=== PATIENT | male | born 1965 | race Caucasian/White ===

== ENCOUNTER 2021-04-25 12:50 | Emergency (ER) | payer OTHER ==
--- NOTE | 2021-04-25 14:27 | RAD REPORT ---
EXAM DESCRIPTION: CT - Head C Spine Mpr Wo Con - 04/25/2021 2:08 pm CLINICAL HISTORY: Head and neck injury status post fall. Head and neck pain COMPARISON: None. TECHNIQUE: Computed axial tomography of the head and cervical spine was obtained. Sagittal and coronal reconstruction was performed. All CT scans are performed using dose optimization technique as appropriate and may include automated exposure control or mA/KV adjustment according to patient size. FINDINGS: An intracranial bleed is not seen. The ventricles are normal in caliber. An extra-axial fl uid collection is not noted.Fluid within the visualized sinuses and mastoids is not seen A cervical fracture is not visualized. No dislocation is noted. Large osteophytes extend off of the a nterior aspect of the cervical spine IMPRESSION: No acute intracranial abnormality is seen. A cervical fracture is not visualized. If the patient continues to have symptoms to suggest intracra nial /spinal cord pathology then MRI would be recommended
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
[2021-04-25 15:21] VITALS: TEMP 98.7
[2021-04-25 15:23] VITALS: BP 142/90; O2SAT 100
== END 2021-04-25 15:12 | disposition home or self-care (01) ==
LOC: ER 12:50
DX: M79.10 Myalgia, unspecified site (principal); V49.40XA Driver injured in collision with unspecified motor vehicles in traffic accident, initial encounter; I10 Essential (primary) hypertension
CPT/HCPCS: 70450; 72125; 99284

== ENCOUNTER 2023-01-01 12:33 | Emergency (ER) | payer BC ==
--- NOTE | 2023-01-01 14:21 | RAD REPORT ---
EXAM DESCRIPTION: USUpper Ext Artery Uni Bil01/01/2023 1:56 pm CLINICAL HISTORY: Left arm swelling and pain COMPARISON: None FINDINGS: The left common carotid, left subclavian, left subclavian, left axillary, left brachial, l eft basilic, left ulnar and left radial arteries demonstrate normal waveforms. No significant stenosis/occlusion Doppler demonstrates good flow. Grayscale, color and spectral analysis performed on all vessels IMPRESSION: Unremarkable exam
[2023-01-01 14:39] LABS: Absolute Lymphocytes (CBC) 1.5 K/uL (0.7-4.9); Lymphocytes % 17.6 % (15.3-44.8); MPV 7.2 fL (7.6-11.3); Platelets 292 thou/uL (152-406); RBC Red Blood Cell Count 4.21 M/uL (4.33-5.43)
[2023-01-01 14:40] LABS: Protime INR 1.1
[2023-01-01 14:53] LABS: Potassium 4.2 mEq/L (3.5-5.1)
--- NOTE | 2023-01-01 15:07 | RAD REPORT ---
EXAM DESCRIPTION: US - UPPER EXTREMITY VENOUS UNILATE - 01/01/2023 1:57 pm CLINICAL HISTORY: left arm swelling. COMPARISON: None. FINDINGS: Echogenic material consistent with acute thrombus is present within the left subclavian an d left axillary veins Left internal jugular vein, left brachial vein, left cephalic, left basilic, left ulnar and left radi al veins demonstrate phasic signal.The veins are compressible. Doppler demonstrates good flow. Grayscale, color and spectral analysis performed on all vessels IMPRESSION: Acute thrombus left subclavian and left axillary veins
--- NOTE | 2023-01-01 15:36 | EDPHYS ---
Physician Documentation [facility] Name: Esau Jose Age: 57 yrs Sex: Male : 1965 Arrival Date: 01/01/2023 Time: 12:33 Bed 10 Private MD: ED Physician Hola Nunez HPI: 01/01 13:00 This 57 yrs old Male presents to ER via Ambulatory with complaints of Arm Swelling. jh7 13:00 Onset: The symptoms/episode began/occurred 1 day(s) ago. Associated signs and symptoms: jh7 Pertinent negatives: fever. 57-year-old male presents to the ER complaining of left arm swelling, pain, and redness since yesterday. He has a history of hypertension and takes lisinopril. 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 Denies fever or shortness of breath.. Historical: - Allergies: 12:54 No Known Allergies; hb - Home Meds: 12:54 lisinopril Oral [Active]; hb - PMHx: 12:54 Chronic pain; Hypertensive disorder; hb - Immunization history:: Adult Immunizations up to date. - Social history:: Smoking status: Patient reports use of chewing tobacco. ROS: 13:00 MS/extremity: Positive for pain, swelling, tenderness, of the left arm, jh7 13:00 Constitutional: Negative for fever, chills, and weight loss, Eyes: Negative for injury, jh7 pain, redness, and discharge, Neck: Negative for injury, pain, and swelling, Cardiovascular: Negative for chest pain, palpitations, and edema, Respiratory: Negative for shortness of breath, cough, wheezing, and pleuritic chest pain, Abdomen/GI: Negative for abdominal pain, nausea, vomiting, diarrhea, and constipation, Back: Negative for injury and pain, Skin: Negative for injury, rash, and discoloration, Neuro: Negative for headache, weakness, numbness, tingling, and seizure, 13:00 All other systems are negative, Exam: 13:00 Constitutional: This is a well developed, well nourished patient who is awake, alert, jh7 and in no acute distress. Head/Face: Normocephalic, atraumatic. Cardiovascular: Regular rate and rhythm with a normal S1 and S2. No gallops, murmurs, or rubs. Normal PMI, no JVD. No pulse deficits. Respiratory: Lungs have equal breath sounds bilaterally, clear to auscultation and percussion. No rales, rhonchi or wheezes noted. No increased work of breathing, no retractions or nasal flaring. Abdomen/GI: Soft, non-tender, with normal bowel sounds. No distension or tympany. No guarding or rebound. No evidence of tenderness throughout. Skin: Warm, dry with normal turgor. Normal color with no rashes, no lesions, and no evidence of cellulitis. Neuro: Awake and alert, GCS 15, oriented to person, place, time, and situation. Motor strength 5/5 in all extremities. Sensory grossly intact. Normal gait. 13:00 Musculoskeletal/extremity: ROM: full active range of motion, Circulation is intact in all extremities. Sensation intact. Entire left arm is tender and swollen with the most significant swelling slightly distal to the elbow where skin is tight.. Vital Signs: 12:52 BP 124 / 87; Pulse 88; Resp 16; Temp 97.9(O); Pulse Ox 100% on R/A; Weight 97.07 kg; hb Height 6 ft. 3 in. ; Pain 8/10; 12:52 Body Mass Index 26.75 (97.07 kg, 190.5 cm) hb 12:52 Pain Scale: Adult hb MDM: 12:37 Patient medically screened. [facility] 15:15 Differential diagnosis: DVT, acute arterial occlusion, cellulitis. Data reviewed: vital [facility] signs, nurses notes, lab test result(s), radiologic studies, ultrasound. Consideration of Admission/Observation Escalation of care including admission/observation considered. I considered the following discharge prescriptions or medication management in the emergency department Medications were administered in the Emergency Department. See MAR. Care significantly affected by the following chronic conditions: Hypertension. Counseling: I had a detailed discussion with the patient and/or guardian regarding the historical points, exam findings, and any diagnostic results supporting the discharge/admit diagnosis, the need for outpatient follow up, for definitive care. ED course: Discussed possible admission of the patient due to significant swelling of arm. The patient stated he would rather go home and follow-up with his PCP on Wednesday. Agreed to provide him a work note so that he may follow-up. Will start on Eliquis starter pack.. 01/01 12:58 Order name: BMP; Complete Time: 14:55 [facility] 01/01 12:58 Order name: CBC with Diff; Complete Time: 14:55 7 01/01 12:58 Order name: PT-INR; Complete Time: 14:55 7 01/01 12:58 Order name: Lactate w/ 2H reflex if indic.; Complete Time: 14:57 7 01/01 13:02 Order name: Upper Ext Artery Uni Felix; Complete Time: 14:31 EDMS 01/01 13:02 Order name: UPPER EXTREMITY VENOUS UNILATE; Complete Time: 15:07 EDMS Administered Medications: No medications were administered Disposition: 16:58 Co-signature as Attending Physician, Hola Nunez MD I reviewed the patient's care rt provided by the Advanced Practice Provider and agree with the diagnosis and treatment plan. Disposition Summary: 01/01/23 15:35 Discharge Ordered Notes: Location: Home [facility] Problem: new [facility] Symptoms: are unchanged [facility] Condition: Stable [facility] Diagnosis - Acute thrombosis of subclavian and axillary veins [facility] Followup: [facility] - With: Private Physician - When: 2 - 3 days - Reason: Recheck today's complaints Discharge Instructions: - Discharge Summary Sheet [facility] - Deep Vein Thrombosis [facility] Forms: - Work release form ap3 - Medication Reconciliation Form [facility] - Thank You Letter [facility] - Patient Portal Instructions [facility] - Leadership Thank You Letter [facility] Prescriptions: - Eliquis DVT-PE Treat 30D Start 5 mg (74 tabs) Oral Tablet, Dose Pack - take 1 tablet ORAL route per package directions for 30 days; 74 tablet; [facility] Refills: 0, Product Selection Permitted - Tramadol 50 mg Oral Tablet - take 1 tablet ORAL route every 8 hours as needed; 12 tablet; Refills: 0, [facility] Product Selection Permitted Signatures: Dis[facility] Aurora Ontiveros RN RN Samantha Coleman, AUTOMATION ARCHITECT AUTOMATION ARCHITECT [facility] Hola Nunez MD MD rt Corrections: (The following items were deleted from the chart) 13:00 12:58 Lower Extremity Artery Uni Ltd+US.RAD.BRZ ordered. EDMS EDMS 13:00 12:58 Extremity Venous Uni Ltd+US.RAD.BRZ ordered. EDMS EDMS 16:55 13:00 MS/extremity: Positive for pain, swelling, tenderness, of the left arm, jh7 jh7
--- NOTE | 2023-01-01 15:36 | ER ---
Nurse's Notes [facility] Name: Esau Jose Age: 57 yrs Sex: Male : 1965 Arrival Date: 01/01/2023 Time: 12:33 Bed 10 Private MD: Diagnosis: Acute thrombosis of subclavian and axillary veins Presentation: 01/01 12:52 Chief complaint: Left arm pain, redness, and swelling that started last night. hb Coronavirus screen: At this time, the client does not indicate any symptoms associated with coronavirus-19. Ebola Screen: No symptoms or risks identified at this time. Initial Sepsis Screen: Does the patient meet any 2 criteria? No. Patient's initial sepsis screen is negative. Does the patient have a suspected source of infection? No. Patient's initial sepsis screen is negative. Risk Assessment: Do you want to hurt yourself or someone else? Patient reports no desire to harm self or others. Onset of symptoms was December 31, 2022. 12:52 Method Of Arrival: Ambulatory hb 12:52 Acuity: BRYSON 3 hb Historical: - Allergies: 12:54 No Known Allergies; hb - Home Meds: 12:54 lisinopril Oral [Active]; hb - PMHx: 12:54 Chronic pain; Hypertensive disorder; hb - Immunization history:: Adult Immunizations up to date. - Social history:: Smoking status: Patient reports use of chewing tobacco. Screenin:00 [facility] ED Fall Risk Assessment (Adult) History of falling in the last 3 months, ap3 including since admission No falls in past 3 months (0 pts). Abuse screen: Denies threats or abuse. Nutritional screening: No deficits noted. Tuberculosis screening: No symptoms or risk factors identified. Assessment: 12:57 General: Appears uncomfortable, Behavior is calm, cooperative, appropriate for age. ap3 Pain: Complains of pain in left arm. Neuro: Level of Consciousness is awake, alert, obeys commands, Oriented to person, place, time, situation. Cardiovascular: Pulses are palpable in right radial artery due to significant swelling, palpation of patients left upper extremity pulses are difficult at this time. Respiratory: Airway is patent Respiratory effort is even, unlabored, Respiratory pattern is regular, symmetrical. 15:21 Reassessment: Patient and/or family updated on plan of care and expected duration. Pain ap3 level reassessed. Patient is alert, oriented x 3, equal unlabored respirations, skin warm/dry/pink. Vital Signs: 12:52 BP 124 / 87; Pulse 88; Resp 16; Temp 97.9(O); Pulse Ox 100% on R/A; Weight 97.07 kg; hb Height 6 ft. 3 in. ; Pain 8/10; 12:52 Body Mass Index 26.75 (97.07 kg, 190.5 cm) hb 12:52 Pain Scale: Adult hb ED Course: 12:35 Patient arrived in ED. rg4 12:37 [facility] jh7 12:37 Hola Nunez MD is Attending Physician. jh7 12:54 Triage completed. hb 12:54 Arm band placed on. hb 12:57 Gabi Ortiz, RENAE is Primary Nurse. ap3 13:00 Patient has correct armband on for positive identification. Bed in low position. Call ap3 light in reach. Side rails up X 1. Adult w/ patient. 13:58 Upper Ext Artery Uni Felix In Process Unspecified. EDMS 13:58 UPPER EXTREMITY VENOUS UNILATE In Process Unspecified. EDMS 14:32 Lactate w/ 2H reflex if indic. Sent. hb 14:32 PT-INR Sent. hb 14:32 CBC with Diff Sent. hb 14:32 BMP Sent. hb 14:32 Initial lab(s) drawn, by [facility], sent to lab. Inserted saline lock: 22 gauge in right hb antecubital area, using aseptic technique. Blood collected. 15:57 Provided Education on: discharge instructions. ap3 15:57 No provider procedures requiring assistance completed. IV discontinued, intact, ap3 bleeding controlled, No redness/swelling at site. Pressure dressing applied. Administered Medications: No medications were administered Medication: 14:33 VIS not applicable for this client. hb Outcome: 15:35 Discharge ordered by . 7 15:57 Discharged to home ambulatory, ap3 15:57 Condition: good 15:57 Discharge instructions given to patient, Instructed on discharge instructions, follow up and referral plans. medication usage, Demonstrated understanding of instructions, follow-up care, medications, Prescriptions given X 2, 15:58 Patient left the ED. ap3 Signatures: Dispatcher [employer] EDMS Aurora Ontiveros RN RN hb Garcia, Rubi rg4 Gabi Ortiz, RN RN ap3 Samantha Yen, CASTING MOLDER CASTING MOLDER jh7
[2023-01-01 16:02] VITALS: BP 124/87; TEMP 97.9; O2SAT 100
== END 2023-01-01 15:58 | disposition home or self-care (01) ==
LOC: ER 12:33
DX: I82.B12 Acute embolism and thrombosis of left subclavian vein (principal); I82.A12 Acute embolism and thrombosis of left axillary vein; I10 Essential (primary) hypertension; F17.220 Nicotine dependence, chewing tobacco, uncomplicated
CPT/HCPCS: 36415; 80048; 83605; 85025; 85610; 93931; 93971; 99284